=== PATIENT | female | born 2000 | race Caucasian/White ===

== ENCOUNTER 2020-09-15 06:46 | Emergency (ER) | payer OTHER, SELFPAY ==
[2020-09-15 06:57] VITALS: BP 128/74; PULSE 78; RESP 19; TEMP 37; O2SAT 100
--- NOTE | 2020-09-15 07:30 | ED.ABDPAIN ---
HPI - Abdominal Pain General Chief Complaint: Abdominal Pain Stated Complaint: nausea, vomiting Time Seen by Provider: 09/15/20 07:19 History of Present Illness HPI narrative: Abdominal pain, nausea, vomiting since last night. The pain is moderate. She has had similar symptoms in the past. She has IBS and anxiety. She has not been able to keep any of her medications down today. Related Data Allergies Allergy/AdvReac Type Severity Reaction Status Date / Time cefdinir [From Omnicef] Allergy Hives Verified 09/15/20 07:50 haloperidol [From Haldol] AdvReac Agitated Verified 09/15/20 10:38 Review of Systems Review of Systems: All systems reviewed & are unremarkable except as noted in HPI and below Constitutional: Constitutional: Denies chills and Denies fever(s) ENT: Reports system reviewed and no additional complaints, except as documented Cardiovascular: Cardiovascular: Reports no additional cardiovascular complaints Respiratory: Respiratory: Denies dyspnea Gastrointestinal: Gastrointestinal: Reports abdominal pain, Reports constipation and Reports vomiting Genitourinary: Genitourinary: Denies hematuria, Denies dysuria and Denies urinary incontinence Musculoskeletal: Musculoskeletal: Denies back pain Neurologic: Reports system reviewed and no additional complaints, except as documented [facility] Past Medical History Medical History (Updated 09/15/20 @ 15:24 by Abilio Browning MD) Anxiety IBS (irritable bowel syndrome) Social History Social History Gender identity (if verbalized by the patient): Female Exam Const: General: healthy appearing and alert Orientation/consciousness: patient oriented x3 Other: actively retching HENMT: Head: normal to inspection Resp: Effort & Inspection: normal respiratory effort Auscultation: clear to auscultation bilaterally Cardio: Rate: regular rate Rhythm: regular rhythm GI: Other: Deferred due to actively vomiting patient Skin: General skin exam: normal color Neuro: General: patient oriented x3, moves all extremities, no focal motor deficits and CN's II-XI intact bilaterally Speech: normal speech Extrem: General: normal to inspection Course Vital Signs Vital signs: Vital Signs Temperature 37.0 C 09/15/20 06:57 Pulse Rate 78 09/15/20 06:57 Respiratory Rate 19 09/15/20 06:57 Blood Pressure 128/74 09/15/20 06:57 Pulse Oximetry 100 09/15/20 06:57 Temperature 37.0 C 09/15/20 06:57 Pulse Rate 105 H 09/15/20 10:20 Respiratory Rate 12 09/15/20 10:20 Blood Pressure 129/91 H 09/15/20 10:20 Pulse Oximetry 99 09/15/20 10:20 MDM - Abdominal Pain MDM Narrative Medical decision making narrative: feeling better after medications. She beleives that she is ready for discharge Differential Diagnosis Differential diagnosis: Likely abdominal pain, constipation, gastroenteritis, pancreatitis and other (IBS, CVS) Medical Records Attestation: I reviewed the patient's medical records. Lab Data Attestation: I reviewed the patient's lab results. Result diagrams: 09/15/20 07:31 09/15/20 07:31 Labs: Lab Results 09/15/20 09/15/20 09/15/20 Range/Units 07:31 07:31 07:31 WBC 14.7 H (4.5-10.0) K/mm3 RBC 4.50 (4.2-5.4) M/mm3 Hgb 13.8 (12.0-15.0) g/dL Hct 39.9 (37.0-47.0) % MCV 88.7 (80-100) fl MCH 30.7 (26-34) pg MCHC 34.6 (32-36) g/dl RDW 12.1 (11.5-14.5) % Plt Count 256 (150-375) k/mm3 MPV 10.0 (7.4-10.4) fl Immature Gran % (Auto) 0.3 (0-0.5) % Neut % (Auto) 90.2 H (45.5-73.1) % Lymph % (Auto) 5.2 L (18.3-44.2) % Kimball % (Auto) 3.7 (2.6-8.5) % Eos % (Auto) 0.4 (0-4.4) % Baso % (Auto) 0.2 (0.2-1.2) % Lymph # (Auto) 0.77 L (0.9-3.2) K/mm3 Kimball # (Auto) 0.6 (0.1-0.6) K/mm3 Eos # (Auto) 0.1 (0-0.3) K/mm3 Baso # (Auto) 0.0 (0.0-0.1) K/mm3 Abs Immat Gran (auto) 0.04 H (0.00-0.031) K/mm3 Absolute Neuts (
[2020-09-15 07:42] LABS: Basophils Percent Auto 0.2 % (0.2-1.2); Eosinophils Absolute Auto 0.1 K/mm3 (0-0.3); Eosinophils Percent Auto 0.4 % (0-4.4); Hematocrit 39.9 % (37.0-47.0); Hemoglobin 13.8 g/dL (12.0-15.0); Immature Granulocyte Absolute 0.04 K/mm3 (0.00-0.031); Immature Granulocyte Percent A 0.3 % (0-0.5); Lymphocytes Absolute Auto 0.77 K/mm3 (0.9-3.2); Lymphocytes Percent Auto 5.2 % (18.3-44.2); Mean Corpuscular HGB Conc 34.6 g/dl (32-36); Mean Corpuscular Hemoglobin 30.7 pg (26-34); Mean Corpuscular Volume 88.7 fl (80-100); Monocytes Absolute Auto 0.6 K/mm3 (0.1-0.6); Monocytes Percent Auto 3.7 % (2.6-8.5); Neutrophils Absolute Auto 13.3 K/mm3 (1.3-6.7); Neutrophils Percent Auto 90.2 % (45.5-73.1); Platelet Count Result 256 k/mm3 (150-375); Red Cell Distribution Width 12.1 % (11.5-14.5); White Blood Count 14.7 K/mm3 (4.5-10.0)
[2020-09-15 07:46] LABS: Add Urine Microscopic? YES; Appearance Urine Clear (Clear); Bacteria Urine Trace /hpf; Bilirubin Urine Negative (Negative); Blood Urine Negative (Negative); Color Urine Yellow (Yellow); Glucose Urine UA Negative (Negative); Ketones Urine 1+ mg/dL (Negative); Leukocyte Esterase Ur 1+ LEU/UL (Negative); Mucus Urine Heavy /lpf; Nitrate Urine Negative (Negative); Protein Urine 1+ mg/dL (Negative); Specific Grav Ur 1.024 (1.001-1.035); Urobilinogen Urine Negative mg/dL (<2.0)
[2020-09-15] MEDS: PROMETHAZINE HCL 25 MG/ML AMPUL 12.5 MG IV PUSH (07:51)
[2020-09-15] MEDS: DICYCLOMINE HCL INJ 20 MG/2 ML VIAL IM (07:51)
[2020-09-15] MEDS: SODIUM CHLORIDE 0.9% IV 1,000 ML 999 ML IV CONT (07:51)
[2020-09-15] MEDS: PANTOPRAZOLE SODIUM IV 40 MG VIAL IV PUSH (07:51)
[2020-09-15 07:54] LABS: Potassium 3.8 mmol/L (3.4-5.0)
[2020-09-15 08:24] LABS: Alanine Aminotransferase 18 U/L (4-35); Alkaline Phosphatase 63 U/L (38-126); Anion Gap 12 mmol/L (8-16); Aspartate Amino Transferase 30 U/L (14-36); Bilirubin,Total 0.8 mg/dL (0.2-1.3); Blood Urea Nitrogen 13 mg/dL (7-17); Calcium 9.5 mg/dL (8.4-10.2); Carbon Dioxide 23 mmol/L (22-30); Chloride 104 mmol/L (98-107); Estimated CRCL calculation 106 ml/min; Estimated Glomerular Filt Rate > 60; Glucose 127 mg/dL (65-105); Lipase 70 U/L (23-300); Sodium 139 mmol/L (137-145)
[2020-09-15 09:03] VITALS: BP 124/70; PULSE 70; RESP 12; O2SAT 99
[2020-09-15] MEDS: HALOPERIDOL LACTATE 5 MG/ML VIAL IV PUSH (09:15)
--- NOTE | 2020-09-15 09:30 | PC.NURSE ---
Pt. became very irritable and developed a headache after haldol administration for severe nausea. ERP aware. Additional meds ordered via MAR.
[2020-09-15] MEDS: diphenhydrAMINE HCl INJ 50 MG/ML VIAL 25 MG IV PUSH (10:01)
[2020-09-15] MEDS: KETOROLAC 30 MG/ML VIAL (*BKC) IV PUSH (10:02)
--- NOTE | 2020-09-15 10:15 | PC.NURSE ---
Pt is resting comfortable. Pt. is ready for discharge. ERP aware.
[2020-09-15 10:20] VITALS: BP 129/91; PULSE 105; RESP 12; O2SAT 99
== END 2020-09-15 10:20 | disposition home or self-care (01) ==
PROVIDERS: Emergency Provider Emergency Medicine
DX: R11.2 Nausea with vomiting, unspecified (principal); K58.9 Irritable bowel syndrome, unspecified
CPT/HCPCS: 36415; 80053; 81001; 81025; 83690; 85025; 96361; 96372; 96374; 96375; 99284; C9113; J0131; J0500; J1200; J1630; J1885; J2550; J7030